=== PATIENT | female | born 1945 | race Caucasian/White ===

== ENCOUNTER 2023-12-27 10:26 | Emergency (ER) | payer MEDICARE, OTHER, SELFPAY ==
[2023-12-27 10:28] VITALS: BP 173/79
[2023-12-27 11:44] VITALS: BMI 31.9
[2023-12-27 11:57] VITALS: BP 151/57
[2023-12-27 12:00] VITALS: BP 145/68
[2023-12-27 12:04] LABS: % Basophils 0.5 % (0-2); % Eosinophils 1.2 % (0-6); % Immature Granulocytes 0.4 % (0-0.5); % Lymphocytes 23.6 % (20.5-51.1); % Neutrophils 65.3 % (42.2-75.2); Absolute Eosinophils 0.1 10^3/uL (0-0.7); Absolute Lymphocytes 1.8 10^3/uL (1.2-3.4); Absolute Monocytes 0.7 10^3/uL (0.1-0.6); Hematocrit 39.1 % (37.0-47.0); Hemoglobin 13.5 g/dL (12.0-16.0); Mean Corp Hgb Conc. 34.5 g/dL (33.0-37.0); Mean Corpuscular Hgb 30.6 pg (27.0-31.0); Mean Corpuscular Volume 88.7 fL (81.0-99.0); Mean Platelet Volume 9.1 fL (7.4-10.4); Nucleated Red Blood Cells % 0 %; Platelet Count 343 10^3/uL (130-400); Red Blood Cell Count 4.41 10^6/uL (4.20-5.40); Red Cell Dist. Width 12.4 % (11.5-14.5); White Blood Cell Count 7.7 10^3/uL (4.8-10.8)
[2023-12-27 12:16] LABS: ALT (SGPT) 25 U/L (0-35); AST (SGOT) 27 U/L (14-36); Albumin 4.5 g/dl (3.5-5.0); Alkaline Phosphatase 65 U/L (38-126); Blood Urea Nitrogen 20 mg/dl (7-17); Carbon Dioxide 27 mmol/L (22-30); Chloride 103 mmol/L (98-107); Estimated Creatinine Clearance 60 ml/min; Glucose 99 mg/dl (70-99); Sodium 141 mmol/L (135-145); Total Bilirubin 0.3 mg/dl (0.2-1.3); Total Protein 6.6 g/dl (6.3-8.2); eGFR > 60.00
[2023-12-27 12:26] LABS: D-Dimer < 0.27 ug/mlFEU (0.00-0.50)
[2023-12-27 12:28] LABS: NT-proBNP 267 pg/ml; Troponin I < 0.012 ng/ml
[2023-12-27 13:00] VITALS: BP 136/61
--- NOTE | 2023-12-27 13:36 | ED.GENMED ---
History of Present Illness
General
Chief Complaint: Breathing Problem
Time Seen by Provider: 12/27/23 10:49
History of Present Illness
History of Present Illness:
77-year-old female with history of anxiety and high blood pressure presenting to the emergency department for progressive dyspnea on exertion. Patient reports symptoms that have been ongoing for the past few months, however in the past week, feels
that she has become increasingly dyspneic with shorter periods of exertion. Denies associated chest pain. Denies any fever or cough. Denies any lower extremity swelling. Denies any known history of heart failure. 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 Denies abdominal pain or GI symptoms. Denies history of blood clot, recent travel, recent surgery. She denies additional acute medical complaints
Phy Exam
Physical Exam
Physical Exam:
General: Well-appearing, no clinical signs of dehydration, nontoxic and in no acute distress
HEENT: protecting airway
Neck: appears supple
CV: Normal heart rate, regular rhythm, no evidence of cyanosis
Resp: No accessory muscle use, no increased work of breathing, lungs clear to auscultation bilaterally
Abd: Soft and non-distended, no tenderness to palpation, normal bowel sounds
Extremities: No deformities, no swelling, no erythema
Neuro: alert, no focal neurologic deficit
: deferred
Rectal: deferred
Psych: Normal affect
Skin: Intact
Scores
Heart Failure Risk
Heart Failure Risk Score: Not Applicable
Course
Orders/Labs/Results
Orders:
Orders
12/27/23 10:36
EKG [Electrocardiogram (*1)] Urgent
Reason for Study: Shortness of Breath
EKG- Treatment ONCE
12/27/23 11:35
CR Chest - 2 Views Urgent
Comment:
Reason For Exam: VARGHESE
12/27/23 11:56
Complete Blood Count/With Diff Urgent
Comprehensive Metabolic Panel Urgent
D-Dimer Urgent
NT-proBNP Urgent
Troponin I Urgent
Abnormal Lab Results
12/27/23
11:56
Absolute Monos (auto) 0.7 H 10^3/uL
(0.1-0.6)
BUN 20 H mg/dl
(7-17)
12/27/23 11:56
12/27/23 11:56
Vital Signs
Initial and Last Documented VS:
Initial Vital Signs
Temp Pulse Resp BP Pulse Ox
98.2 F 70 20 173/79 96
12/27/23 10:28 12/27/23 10:28 12/27/23 10:28 12/27/23 10:28 12/27/23 10:28
Last Documented Vital Signs
Temp Pulse Resp BP Pulse Ox
98.3 F 46 15 134/95 94
12/27/23 14:00 12/27/23 14:00 12/27/23 14:00 12/27/23 14:00 12/27/23 14:00
MDM/Problems Addressed
MDM/Problems Addressed:
77-year-old female with history of anxiety and tension presenting for dyspnea on exertion. Vital signs on arrival are significant for hypertension which resolved without intervention.
On exam, patient is well-appearing, no acute distress or discomfort. Benign cardiac and pulmonary exam. No increased work of breathing. No lower extremity edema, or signs of volume overload. EKG obtained on arrival, sinus rhythm without evidence
of ischemia or arrhythmia. Unclear etiology of patient's symptoms. Include CHF versus PE versus infectious pathology. Lower suspicion for infection, afebrile without cough. Lower suspicion for ACS, absence of chest pain, nonischemic EKG. Plan
for screening laboratory analysis including troponin, D-dimer, BNP, chest x-ray imaging.
13:45 - Chest x-ray without evidence of pneumonia or pulmonary edema. D-dimer within normal limit concern for PE. Troponin undetectable, again without concern for ACS. Patient otherwise remains hemodynamically stable. Feel that patient is stable
for discharge, however extensive conversation had with patient and friend at bedside. Advised interval follow-up with cardiology given duration of symptoms, may warrant a stress test and echo. Will provide information for cardiology. Strict
return precautions discussed and patient verbalized understanding
*EKG
Interpreted by ED Provider?: Yes
EKG Intrepretation Date: 12/27/23
EKG Intrepretation Time: 13:40
Interpretation: normal
Comparison EKG: no comparison EKG present
Heart Rate: 55
Rate: bradycardiac
Rhythm: sinus
Allen: normal axis
Interval: normal interval
QRS Pattern: normal QRS
Ischemia: no ischemia
*Critical Care Note
Total Time (30-74mins, 75-104mins- exclusive of procedures): Not Applicable
ED Attending Note
-
Portions of this chart may have been created with voice recognition software.� Occasional wrong word or��sound alike� substitutions may have occurred due to the inherent limitations of voice recognition software.
Discharge Plan
Departure
Patient Disposition: Home (Routine Discharge)
Date of Disposition: 12/27/23
Time of Disposition: 13:43
Patient with high blood pressure during this ER visit?: Yes
Condition: Good
Discharge Problem:
VARGHESE (dyspnea on exertion)
Instructions: Shortness of Breath, Adult ED
Referrals:
Cardiology, [facility] [Other]
PRIVATE,PHYSICIAN [Family Provider] -
Lamont White MD [Active] - (dyspnea on exertion)
Activity Restrictions/Additional Instructions:
You were seen in the emergency department for increased difficulty breathing with exertion
You were found to have normal laboratory analysis, EKG, chest x-ray. You are advised to follow-up with a fried cake maker test and ultrasound of your heart.
Please follow-up closely with your primary care physician.
Return to the emergency department for any worsening of your symptoms, or any development of chest pain, difficulty breathing, abdominal pain with persistent vomiting and inability to tolerate food or liquid by mouth (concern for dehydration),
weakness, headache or confusion, fever greater than 100.4, or any additional symptoms that are concerning to you.
Thank you for choosing [facility].
Interventions
Interventions:
*Risk Screen - Suicide Last Done: 12/27/23 11:44
*General Assessment Last Done: 12/27/23 11:44
*Neglect/Abuse Screening Last Done: 12/27/23 11:44
ED- Fall Risk Assessment Last Done: 12/27/23 11:46
*ED COVID-19 Vaccine History Last Done: 12/27/23 11:44
*Nursing Disposition Last Done: 12/27/23 14:00
ED- Cardiac Assessment Last Done: 12/27/23 11:46
ED- Pulmonary Assessment Last Done: 12/27/23 11:46
Discharge Date and Time
Discharge Date/Time: 12/27/23 14:59
Print Language: ESTONIAN
[2023-12-27 14:00] VITALS: BP 134/95
== END 2023-12-27 14:59 | disposition home or self-care (01) ==
LOC: EMR 10:26
PROVIDERS: EMERGENCY PHYSICIAN Student in an Organized Health Care Education/Training Program
DX: R06.09 Other forms of dyspnea (principal)
CPT/HCPCS: 99285; 71046; 80053; 83880; 84484; 85025; 85379; 93005

== ENCOUNTER → 2024-01-06 14:47 | Outpatient (REF) | payer MEDICARE, OTHER, SELFPAY | LOC: HWRCS 14:47 | PROVIDERS: ATTENDING PHYSICIAN Internal Medicine Cardiovascular Disease | DX: R06.09 Other forms of dyspnea (principal); R42 Dizziness and giddiness | CPT/HCPCS: 93306 ==

== ENCOUNTER → 2024-01-08 11:18 | Outpatient (REF) | payer MEDICARE, OTHER, SELFPAY | LOC: DHCBC/DCA 11:18 | PROVIDERS: ATTENDING PHYSICIAN Internal Medicine Cardiovascular Disease | DX: R06.09 Other forms of dyspnea (principal); R42 Dizziness and giddiness | CPT/HCPCS: 78452; 93017; A9500; J2785 ==

== ENCOUNTER 2024-08-16 12:38 | Emergency (ER) | payer MEDICARE, OTHER, SELFPAY ==
[2024-08-16 12:41] VITALS: BP 135/70
--- NOTE | 2024-08-16 13:20 | ED.SKININJ ---
HPI-Injury
General
Chief Complaint: Bite
Time Seen by Provider: 08/16/24 12:50
History of Present Illness-Injury
Initial Injury comments:
78-year-old female presents to the emergency department for evaluation of numerous tick bites. States that last [place] ticks, a friend of hers removed several from her left shoulder and she
personally removed 1 from the abdomen. 2 days later she was seen in urgent care and started on doxycycline for 1 week. This morning she vomited up the dose of medication. She is extremely anxious about having more embedded ticks on her body and
would like a full body evaluation
Review of Systems
Review of Systems
Allergies reviewed?: Yes
All Other Systems: ROS reviewed and negative except as documented in HPI and ROS
Phy Exam
Physical Exam
Physical Exam:
GEN: Well appearing, NAD, WDWN
HEENT: Oral mucosa moist, no scleral icterus
Cardiac: Regular rate
Lung: No respiratory distress, no tachypnea
MSK: No gross deformity or injuries
Skin: Good color, no pallor or jaundice, no rashes. Head to toe skin exam including scalp assessment reveals no evidence for continued embedded ticks. She has excoriated wounds to the left chest and the abdomen
Neuro: AO x3, moves all extremities freely
Psych: Calm, cooperative
Course
Vital Signs
Initial and Last Documented VS:
Initial Vital Signs
Temp Pulse Resp BP Pulse Ox
98.7 F 60 18 135/70 99
08/16/24 12:41 08/16/24 12:41 08/16/24 12:41 08/16/24 12:41 08/16/24 12:41
Last Documented Vital Signs
Temp Pulse Resp BP Pulse Ox
98.7 F 62 18 136/72 99
08/16/24 12:41 08/16/24 13:28 08/16/24 13:28 08/16/24 13:28 08/16/24 13:28
MDM/Problems Addressed
MDM/Problems Addressed:
She is advised to discontinue the doxycycline as the prompt initiation of Doxy is effective against acute tickborne illnesses, I do not see any indication for her to complete the full 1 week course. She is quite anxious and perseverating on the
idea that she may have more tics and asked me to reexamine her at least 3 times
*Critical Care Note
Total Time (30-74mins, 75-104mins- exclusive of procedures): Not Applicable
ED Attending Note
-
Portions of this chart may have been created with voice recognition software.� Occasional wrong word or��sound alike� substitutions may have occurred due to the inherent limitations of voice recognition software.
Discharge Plan
Departure
Patient Disposition: Home (Routine Discharge)
Date of Disposition: 08/16/24
Time of Disposition: 13:20
Patient with high blood pressure during this ER visit?: No
Discharge Problem:
Tick bite
Instructions: Insect bites and stings
Activity Restrictions/Additional Instructions:
No need to take the doxycycline any longer
Interventions
Interventions:
*Risk Screen - Suicide Last Done: 08/16/24 12:41
*General Assessment Last Done: 08/16/24 12:41
*Neglect/Abuse Screening Last Done: 08/16/24 12:41
*ED COVID-19 Vaccine History Last Done: 08/16/24 12:41
*Nursing Disposition Last Done: 08/16/24 13:28
ED-Skin Assessment Last Done: 08/16/24 13:01
Discharge Date and Time
Print Language: UKRAINIAN
[2024-08-16 13:28] VITALS: BP 136/72
== END 2024-08-16 13:37 | disposition home or self-care (01) ==
LOC: EMR 12:38
PROVIDERS: EMERGENCY PHYSICIAN Emergency Medicine; FAMILY PHYSICIAN Internal Medicine
DX: S40.262A Insect bite (nonvenomous) of left shoulder, initial encounter (principal); S30.861A Insect bite (nonvenomous) of abdominal wall, initial encounter; W57.XXXA Bitten or stung by nonvenomous insect and other nonvenomous arthropods, initial encounter
CPT/HCPCS: 99281